=== PATIENT | male | born 1990 | race Two or more races ===

== ENCOUNTER 2021-12-08 20:12 | Emergency (ER) | payer SELFPAY ==
[~2021-12-08] VITALS: Ht 165.1 cm; Wt 121.0 kg
--- NOTE | 2021-12-08 21:03 | PHYS DOC ---
Past Medical History Past Medical History: No Pertinent History Past Surgical History: No Surgical History Smoking Status: Never Smoker Alcohol Use: None Drug Use: None General Adult EDM: Chief Complaint: FLU SYMPTOM HPI: HPI: Patient is a 31 year old male presents with fever cough congestion for the last week. No other sick contacts. Patient is not vaccinated for COVID. Denies having symptoms prior. Denies headache. Reports body aches and Review of Systems: Review of Systems: Constitutional: fever or chills. [] Eyes: Denies change in visual acuity. [] HENT: Denies nasal congestion or sore throat. [] Respiratory: Dry cough and shortness of breath] Cardiovascular: Denies chest pain or edema. [] GI: Denies abdominal pain, nausea, vomiting, bloody stools or diarrhea. [] : Denies dysuria. [] Musculoskeletal: Denies back pain or joint pain. [] Integument: Denies rash. [] Neurologic: Denies headache, focal weakness or sensory changes. [] Endocrine: Denies polyuria or polydipsia. [] Lymphatic: Denies swollen glands. [] Psychiatric: Denies depression or anxiety. [] Heart Score: C/O Chest Pain: No Risk Factors: Risk Factors: DM, Current or recent (<one month) smoker, HTN, HLP, family hist ory of CAD, obesity. Risk Scores: Score 0 - 3: 2.5% MACE over next 6 weeks - Discharge Home Score 4 - 6: 20.3% MACE over next 6 weeks - Admit for Clinical Observation Score 7 - 10: 72.7% MACE over next 6 weeks - Early Invasive Strategies Allergies: Allergies: Allergies Coded Allergies Type Severity Reaction Last Updated Verified No Known Drug Allergies 03/11/14 No Physical Exam: PE: Constitutional: Well developed, well nourished, no acute distress, non-toxic appearance. [] HENT: Normocephalic, atraumatic, bilateral external ears normal, oropharynx moist, no oral exudates, nose normal. [] Eyes: PERRLA, EOMI, conjunctiva normal, no discharge. [] Neck: Normal range of motion, no tenderness, supple, no stridor. [] Cardiovascular:Heart rate regular rhythm, no murmur [] Lungs & Thorax: Bilateral wheezing Abdomen: Bowel sounds normal, soft, no tenderness, no masses, no pulsatile masses. [] Skin: Warm, dry, no erythema, no rash. [] Back: No tenderness, no CVA tenderness. [] Extremities: No tenderness, no cyanosis, no clubbing, ROM intact, no edema. [] Neurologic: Alert and oriented X 3, normal motor function, normal sensory function, no focal deficits noted. [] Psychologic: Affect normal, judgement normal, mood normal. [] Current Patient Data: Vital Signs: Vital Signs Date Time Temp Pulse Resp B/P (MAP) Pulse Ox O2 Delivery O2 Flow Rate FiO2 12/08/21 20:20 99.8 109 20 183/88 (119) 98 Room Air 99.8 EKG: EKG: [] Radiology/Procedures: Radiology/Procedures: []XR CHEST 1V Clinical History: Reason: SOB / Spl. Instructions: / History: Technique: AP view of the chest was obtained at 12/08/2021 8:42 PM. Comparison: None. Findings: The cardiomediastinal silhouette is normal. The pulmonary vasculature is normal. The lungs and pleural margins are clear. Impression: No evidence of an acute cardiopulmonary process. Electronically signed by: Low Campbell III, MD (12/08/2021 10:26 PM) [facility] Course & Med Decision Making: Course & Med Decision Making Pertinent Labs and Imaging studies reviewed. (See chart for details) [] Patient states that the breathing treatments helped. Patient's COVID was flu test were negative. Patient given strict return precautions patient is hemodynamically stable. Questions and concerns were addressed. Family would like to take patient home Dragon Disclaimer: Cory Disclaimer: This electronic medical record was generated, in whole or in part, using a voice recognition dictation system. Departure Departure Impression: Primary Impression: Viral bronchitis Disposition: HOME / SELF CARE / HOMELESS Condition: STABLE Referrals: NON,STAFF (PCP) Scripts Albuterol Sulfate (PROAIR HFA INHALER) 8.5 Gm Hfa.aer.ad 2 PUFF IH PRN Q4-6HRS PRN for wheezing for 21 Days, #1 INHALER 0 Refills Prov: JUVENCIO BEACH DO 12/09/21 Prednisone (PREDNISONE) 50 Mg Tablet 1 TAB PO DAILY, #5 TAB Prov: JUVENCIO BEACH DO 12/09/21 JUVENCIO BEACH DO Dec 08, 2021 21:03
[2021-12-08 21:17] LABS: INFLUENZA A PATIENT NEGATIVE (NEGATIVE); INFLUENZA B PATIENT NEGATIVE (NEGATIVE)
--- NOTE | 2021-12-08 22:28 | RAD ---
XR CHEST 1V Clinical History: Reason: SOB / Spl. Instructions: / History: Technique: AP view of the chest was obtained at 12/08/2021 8:42 PM. Comparison: None. Findings: The cardiomediastinal silhouette is normal. The pulmonary vasculature is normal. The lungs and pleura l margins are clear. Impression: No evidence of an acute cardiopulmonary process. Electronically signed by: Low Campbell III, MD (12/08/2021 10:26 PM) [facility]
[2021-12-08] MEDS ORDERED: ACETAMINOPHEN 325 MG TABLET. PO ONE (23:15)
[2021-12-08] MEDS ORDERED: ALBUTEROL SULFATE 2.5 MG/3 ML NEBU. NEB ONE (23:45)
[2021-12-09 00:15] VITALS: BP 153/85
[2021-12-09] MEDS ORDERED: PRED50TA PO (00:30)
[2021-12-09] MEDS ORDERED: ALBU2.5V8 IH (00:30)
== END 2021-12-09 00:57 | disposition home or self-care (01) ==
LOC: ER 20:12
DX: J20.8 Acute bronchitis due to other specified organisms (principal); Z20.822 Contact with and (suspected) exposure to COVID-19
CPT/HCPCS: 71045; 87426; 87428; 94640; 99284; J7613